=== PATIENT | female | born 1930 | race Caucasian/White ===

== ENCOUNTER 2017-09-29 08:00 | Outpatient (CLI) | payer MEDICARE | END 2017-09-29 08:01 | disposition home or self-care (01) | LOC: D.MAMMO 08:00 | DX: Z12.31 Encounter for screening mammogram for malignant neoplasm of breast (principal) ==

== ENCOUNTER 2018-10-05 08:00 | Outpatient (CLI) | payer MEDICARE | END 2018-10-05 23:59 | disposition home or self-care (01) | LOC: D.MAMMO 08:00 | PROVIDERS: ATTEND Clinical Nurse Specialist Adult Health | DX: Z12.31 Encounter for screening mammogram for malignant neoplasm of breast (principal) ==

== ENCOUNTER → 2018-11-19 10:34 | Outpatient (CLI) | payer MEDICARE ==
[~2018-11-19 10:34] MED LIST: ASCORBIC ACID500 MG PO; BACTRIM 400-801 TAB PO; BAYER CHEWABLE81 MG PO; CHRONULAC30 ML PO; CINNAMON500 MG PO; CITRACAL + D E1 EACH PO; DONEPEZIL HCL5 MG PO; FLUTICASONE PRO16 GM NASAL; GARLIC; GLUCOPHAGE1000 MG PO; GORDON'S VITE480 G1 TP; LYRICA50 MG PO; METROLOTION59 ML TOPICAL; MULTI-DAY VITAM1 TAB PO; PROBIOTIC250 MG PO; PROLIA INJ 660 MG/M1 SC; QUESTRAN LIG1 PACKET PO; REMERON15 MG PO; VITAMIN B-12250 MC3 PO; VITAMIN B-6250 MG PO
== END | disposition home or self-care (01) ==
LOC: D.MRI 10:34
PROVIDERS: ATTEND Family Medicine
DX: M48.56XA Collapsed vertebra, not elsewhere classified, lumbar region, initial encounter for fracture (principal)

== ENCOUNTER 2018-11-24 11:03 | Inpatient (IN) | payer MEDICARE, MEDICAID ==
[~2018-11-24] VITALS: Ht 167.6 cm; Wt 56.7 kg
[2018-11-24] MEDS ORDERED: CITRACAL + D E1 EACH PO (11:09)
[2018-11-24] MEDS ORDERED: BAYER CHEWABLE81 MG PO (11:09)
[2018-11-24] MEDS ORDERED: CINNAMON500 MG PO (11:10)
[2018-11-24] MEDS ORDERED: QUESTRAN LIG1 PACKET PO (11:10)
[2018-11-24] MEDS ORDERED: DONEPEZIL HCL5 MG PO (11:11)
[2018-11-24] MEDS ORDERED: GARLIC (11:12)
[2018-11-24] MEDS ORDERED: FLUTICASONE PRO16 GM NASAL (11:12)
[2018-11-24] MEDS ORDERED: LYRICA50 MG PO (11:13)
[2018-11-24] MEDS ORDERED: GLUCOPHAGE1000 MG PO (11:13)
[2018-11-24] MEDS ORDERED: METROLOTION59 ML TOPICAL (11:13)
[2018-11-24] MEDS ORDERED: MULTI-DAY VITAM1 TAB PO (11:14)
[2018-11-24] MEDS ORDERED: PROLIA INJ 660 MG/M1 SC (11:14)
[2018-11-24] MEDS ORDERED: REMERON15 MG PO (11:14)
[2018-11-24] MEDS ORDERED: VITAMIN B-6250 MG PO (11:15)
[2018-11-24] MEDS ORDERED: GORDON'S VITE480 G1 TP (11:15)
[2018-11-24] MEDS ORDERED: ASCORBIC ACID500 MG PO (11:15)
[2018-11-24] MEDS ORDERED: VITAMIN B-12250 MC3 PO (11:15)
[2018-11-24] MEDS ORDERED: PROBIOTIC250 MG PO (11:16)
[2018-11-24] MEDS ORDERED: BACTRIM 400-801 TAB PO (11:16)
[2018-11-24] MEDS ORDERED: CHRONULAC30 ML PO (11:17)
[2018-11-24 12:12] LABS: ALBUMIN 2.8 g/dL (3.4-5.0); ALKALINE PHOSPHATASE 104 U/L (46-116); ALT (SGPT) 22 U/L (10-68); AMYLASE - SERUM 97 U/L (25-115); BILIRUBIN - TOTAL 0.45 mg/dL (0.2-1.3); CALC OSMOLALITY 282 mosm/kg (275-300); CALCIUM 10.6 mg/dL (8.5-10.1); CARBON DIOXIDE 27.4 mmol/L (21.0-32.0); CHLORIDE - SERUM 90 mmol/L (98-107); CREATININE - SERUM 1.7 mg/dL (0.6-1.3); GLUCOSE 288 mg/dL (74-106); PROTEIN - SERUM 6.8 g/dL (6.4-8.2); SODIUM 124 mmol/L (136-145); TROPONIN-I < 0.017 ng/mL (0.000-0.060); UREA NITROGEN 73 mg/dL (7-18); eGFR NON AFRICAN AMERICAN 30 mL/min (90-120)
[2018-11-24 12:15] LABS: APPEARANCE HAZY (CLEAR); BILIRUBIN NEGATIVE (NEGATIVE); COLOR YELLOW (YELLOW); GLUCOSE 50 mg/dL (NEGATIVE); KETONE NEGATIVE (NEGATIVE); NITRITE NEGATIVE (NEGATIVE); PROTEIN 1+ mg/dL (NEGATIVE); SPECIFIC GRAVITY 1.025 (1.005-1.020); UROBILINOGEN NORMAL (NORMAL); WHITE CELLS - URINE NSEEN /hpf (0-5)
[2018-11-24 12:16] LABS: LIPASE 41 U/L (73-393)
[2018-11-24 12:16] LABS: BACTERIA FEW /hpf (NONE SEEN); EPITHELIAL CELLS 0-5 /hpf (0-5); MUCUS <1+ /lpf (NONE SEEN); RED CELLS - URINE RARE /hpf (0-5)
[2018-11-24 12:18] LABS: POTASSIUM - SERUM 6.1 mmol/L (3.5-5.1)
[2018-11-24 12:19] LABS: BASOPHILS 0.1 % (0-2); EOSINOPHILS 0 % (0-7); HEMATOCRIT 35.7 % (36.0-48.0); HEMOGLOBIN 11.8 g/dL (12-16); IMMATURE GRANULOCYTES 0.4 % (0-5); LYMPHOCYTES 4.8 % (15-50); MCH 28.7 pg (26.0-34.0); MCHC 33.1 g/dL (31.0-37.0); MCV 86.9 fL (80.0-100.0); MONOCYTES 13.9 % (2-11); NEUTROPHILS 80.8 % (40-80); PLATELET COUNT 392 10x3/uL (130-400); RBC 4.11 10x6/uL (4.00-5.40); WBC 17.4 10x3/uL (4.8-10.8)
[2018-11-24 13:47] VITALS: BP 147/61
--- NOTE | 2018-11-24 14:36 | NUR ---
PT HEART RATE NOTED TO BE ELEVATED, CLIFTON WOODY APN, IN ED, NOTIFIED OF PT HEART RATE, NURSE ASKED HER IF SHE WANTED ANOTHER EKG DONE. JENNIFER STATES YES, FOR ANOTHER EKG. EKG REPORTS AFIB WITH RVR. NURSE CALLED DR. FULLER TO NOTIFY HER OF EKG RESULTS. STATES CARDIOLOGY CONSULT. NO OTHERS ORDERS GIVEN.
--- NOTE | 2018-11-24 14:50 | NUR ---
PATIENT ARRIVED TO UNIT VIA GERNEY. PATIENT ALERT/ORIENTED. PATIENT REQUIRES MAX ASSIST TO GET FROM GERNEY TO BED. IV TO RIGHT FOREARM PATENT. RESP EVEN AND UNLABORED. WHILE ASSISTING PATIENT TO BED, SKIN INSPECTED AND LARGE BASEBALL SHAPE RED AREA APPROX 5X5 NOTED OVER SACRUM/COCCYYX/GLUTEAL CLEFT AREA. ALSO SOME FADING BRUISES TO SACRAL AREA. PATIENT DENIES NAY FALLS OVER THE LAST FEW WEEKS. PATIENT HAS UPPER AND LOWER DENTURES AND GLASSES. [place]. NO ASSISTIVE DEVICES. PATIENT AT BEDSIDE. NO DISTRESS. CALL LIGHT PLACED WITH IN REACH.
[2018-11-24 15:26] VITALS: BP 171/67
--- NOTE | 2018-11-24 16:51 | NUR ---
FSBS 281. 6 UNITS INSULIN ADMINISTERED PER SLIDING SCALE.
--- NOTE | 2018-11-24 17:06 | NUR ---
SHIRIN PARRISH REPORTS TO NURSE THAT PATIENTS SPOUSE WAS VERY RUDE TO HER. PATIENT SPOUSE STATED THAT THE LIGHT HAD BEEN ON FOR 30 MINUTES AND THAT SHE HAS TO GO TO THE BATHROOM AND NOW THE BED IS SOILED. APOLOGIZED TO THE ANIMAL DAYCARE PROVIDER THIS STROKE PROGRAM COORDINATOR WAS JUST IN THE ROOM AT 1649 TO GIVE INSULIN AND THEN TOOK FRESH ICE WATER BACK TO THE ROOM, THE CALL LIGHT HAS NOT BEEN ON FOR 30 MINUTES. APOLOGIZED AGAIN TO ANIMAL DAYCARE PROVIDER FOR PATIENTS SPOUSE BEING RUDE TO HER.
--- NOTE | 2018-11-24 17:15 | NUR ---
INCONTINENT CARE AND COMPLETE LINEN CHANGE PROVIDED AT THIS TIME. NO DISTRESS.
[2018-11-24 17:40] VITALS: BP 171/67; BMI 20.2
[2018-11-24 17:56] LABS: BASOPHILS 0.1 % (0-2); EOSINOPHILS 0 % (0-7); HEMATOCRIT 30.8 % (36.0-48.0); HEMOGLOBIN 10.4 g/dL (12-16); IMMATURE GRANULOCYTES 0.3 % (0-5); LYMPHOCYTES 4.4 % (15-50); MCH 28.9 pg (26.0-34.0); MCHC 33.8 g/dL (31.0-37.0); MCV 85.6 fL (80.0-100.0); MEAN PLATELET VOLUME 8.7 fL (7.4-10.4); MONOCYTES 11.4 % (2-11); NEUTROPHILS 83.8 % (40-80); RDW 13.7 % (11.5-14.5); WBC 14.6 10x3/uL (4.8-10.8)
[2018-11-24 18:00] LABS: PLATELET COUNT 313 10x3/uL (130-400)
[2018-11-24 18:12] LABS: ANION GAP 13.6 mmol/L (8-16); CARBON DIOXIDE 24.8 mmol/L (21.0-32.0); CREATININE - SERUM 1.4 mg/dL (0.6-1.3); MAGNESIUM - SERUM 2.8 mg/dL (1.8-2.4); PHOSPHOROUS 2.5 mg/dL (2.5-4.9); POTASSIUM - SERUM 5.4 mmol/L (3.5-5.1)
--- NOTE | 2018-11-24 18:40 | NUR ---
PHONE NUMBER IS [phone]. THAT IS THE LANDLINE NUMBER. HE DOES HAVE A CELL PHONE BUT CAN NOT REMEMBER HIS CELL PHONE NUMBER. 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
--- NOTE | 2018-11-24 19:40 | NUR ---
ASSESSMENT COMPLETE, PT IN BED RESTING WITH EYES CLOSED, AROUSES TO VERBAL STIMULI. RESPERATIONS EVEN ON RA. IV TO RIGHT ARM WITH NS INFUSING AT 125 CC/HR. PTS AT BED SIDE, BED LOW, CL IN REACH.
[2018-11-24 20:00] VITALS: BP 159/60
[2018-11-25] VITALS: BP 160/62
[2018-11-25 06:34] LABS: BASOPHILS 0.2 % (0-2); EOSINOPHILS 0 % (0-7); IMMATURE GRANULOCYTES 1.1 % (0-5); LYMPHOCYTES 8.5 % (15-50); MCH 28.4 pg (26.0-34.0); MCHC 33.3 g/dL (31.0-37.0); MCV 85.2 fL (80.0-100.0); MEAN PLATELET VOLUME 8.9 fL (7.4-10.4); MONOCYTES 12.5 % (2-11); NEUTROPHILS 77.7 % (40-80); PLATELET COUNT 339 10x3/uL (130-400); RBC 3.17 10x6/uL (4.00-5.40); RDW 13.9 % (11.5-14.5); WBC 12.8 10x3/uL (4.8-10.8)
[2018-11-25 06:49] VITALS: BP 159/65
[2018-11-25 07:11] LABS: ANION GAP 11.6 mmol/L (8-16); CALCIUM 7.9 mg/dL (8.5-10.1); CREATININE - SERUM 1.1 mg/dL (0.6-1.3); MAGNESIUM - SERUM 2.4 mg/dL (1.8-2.4); POTASSIUM - SERUM 4.6 mmol/L (3.5-5.1)
[2018-11-25 07:13] LABS: PHOSPHOROUS 1.7 mg/dL (2.5-4.9)
--- NOTE | 2018-11-25 07:52 | NUR ---
RECIEVED REPORT. PATIENT IS RESTING QUIETLY WITH EYES CLOSED AT THIS TIME. DENIES ANY NEEDS AT THIS TIME.
[2018-11-25 08:32] VITALS: BP 166/65
--- NOTE | 2018-11-25 10:33 | NUR ---
PATIENT REPORTS AND FAMILY THAT SHE IS NO LONGER TAKING LYRICA BECAUSE HER EYE DR TOLD HER IF SHE CAN STAND TO NOT TAKE IT, AND DOES NOT HAVE TOO MUCH PAIN IN HER FEET, NOT TO TAKE IT. SHE AND HER FAMILY MEMBER TOLD ME SHE HAS NOT TAKEN IT FOR 4 MONTHS. WILL CALL AND REPORT TO CLIFTON.
[2018-11-25 12:43] VITALS: BP 137/62
[2018-11-25 13:18] VITALS: BMI 20.1
--- NOTE | 2018-11-25 18:32 | NUR ---
LAURA CATHETER PLACED. 16 ALBANIAN, AND THE BALLOON FILLED WITH 10CC STERILE WATER. PATIENT TOLERATED WELL. 200 ML CLEAR YELLOW URINE FLOWED INTO BAG AFTER INSERTION. LAURA CATHETER ORDERED BY DR BOLES TO MONITOR FLUIDS ON THIS PATIENT, SHE CAME IN FOR DEHYDRATION, AND IS INCONTINENT. PATIENT TOLERATED PROCEDURE WELL.
--- NOTE | 2018-11-25 19:00 | NUR ---
PATIENT LAYING IN BED, EYES CLOSED, CHEST RISING AND FALLING. NO DISTRESS NOTED. LAURA EMPTIED AND RECIEVED 400ML OF JACKELIN URINE.
--- NOTE | 2018-11-26 01:30 | NUR ---
PATIENT LAYING IN BED, EYES CLOSED, CHEST RISING AND FALLING. NO DISTRESS NOTED.
[2018-11-26 05:30] LABS: HEMATOCRIT 24.8 % (36.0-48.0); HEMOGLOBIN 8.1 g/dL (12-16); MCH 28.4 pg (26.0-34.0); MCHC 32.7 g/dL (31.0-37.0); MEAN PLATELET VOLUME 8.7 fL (7.4-10.4); PLATELET COUNT 327 10x3/uL (130-400); RBC 2.85 10x6/uL (4.00-5.40); RDW 14.1 % (11.5-14.5); WBC 10.8 10x3/uL (4.8-10.8)
[2018-11-26 05:52] LABS: ANION GAP 11.4 mmol/L (8-16); CALCIUM 7.4 mg/dL (8.5-10.1); CARBON DIOXIDE 22.9 mmol/L (21.0-32.0); CREATININE - SERUM 0.9 mg/dL (0.6-1.3); MAGNESIUM - SERUM 1.9 mg/dL (1.8-2.4); POTASSIUM - SERUM 4.3 mmol/L (3.5-5.1)
[2018-11-26 05:56] LABS: LYMPHOCYTES 16 % (15-50); MONOCYTES 13 % (2-11); NEUTROPHILS 71 % (40-80); PLATELET ESTIMATE NORMAL
[2018-11-26 06:39] LABS: PHOSPHOROUS 1.4 mg/dL (2.5-4.9)
--- NOTE | 2018-11-26 06:46 | NUR ---
RECIEVED CALL FROM LAB FOR CRITICAL PHOS. PATIENT GIVEN 2 PKS OF PHOS-NAK PER ELECTROLYTE PROTOCOL. WILL PASS ON TO DAY SHIFT NURSE TO CONTINUE ELECTROLYTE PROTOCOL.
[2018-11-26 08:00] VITALS: BP 162/65
[2018-11-26 12:00] VITALS: BP 141/68
--- NOTE | 2018-11-26 12:58 | NUR ---
I have reviewed this patient and I concur with the Shift Assessment completed by the Licensed Practical Nurse today this shift.
--- NOTE | 2018-11-26 13:11 | EC ---
PATIENT:JAYCE JIM DATE OF SERVICE: 11/24/18 SEX: F MEDICAL RECORD: [id number] DATE OF : 32 LOCATION:D.M2 D.212 AGE OF PATIENT: 88 ADMISSION DATE: 11/24/18 REFERRING PHYSICIAN: INTERPRETING PHYSICIAN: CHRIS CHENG MD ECHOCARDIOGRAM REPORT ECHO CHARGES 4 ECHO COMPLETE Date: 11/25/18 CLINICAL DIAGNOSIS: ECHOCARDIOGRAPHIC MEASUREMENTS (adult normal given) AC root (d.<3.7cm) 2.6 cm LV Septum d (<1.2 cm> 1.0 cm Valve Excursion 1.8 cm LV Septum (systole) 1.2 cm Left Atria (s.<4.0cm> 2.0 cm LVPW d(<1.2cm) 1.3 cm RV (d.<2.3cm) 2.4 cm LVPW (sytole) 1.4 cm LV diastole(<5.6CM) 3.4 cm MV E-F(>70mm/sec) cm LV systole 2.0 cm LVOT Diameter 1.7 cm MV exc.(>10mm) cm Est.ejection fraction (50-75%) % DOPPLER: LVIT cm/sec A 41 cm/sec E 106 cm/sec LA cm/sec RVSP 35.9 mmHg LVOT 150 cm/sec AOP1/2T m/s Asc. Ao 169 cm/sec RVOT 75 cm/sec RA cm/sec PA 95 cm/sec AV Gradient Peak 11.4 mmHg AV Mean 6.9 mmHg AV Area 2.5 cm MV Gradient Peak 5.5 mmHg MV Mean 2.0 mmHg MV Area cm COMMENTS: Blacksmith Helper: [facility] Ad Trafficker: 3 Dr. Shah TAPE# PACS Pericardial Effusion N DATE OF SERVICE: 11/25/2018 Adequate 2D, color flow imaging, spectral Doppler, and M-Mode Borderline LVH. LV internal dimensions are normal. Wall motion is normal. EF is greater than or equal to 55%. 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 Left atrium is normal at 3.8 cm. Mitral valve shows no prolapse. Trace MR. Right-sided chambers are grossly normal. Trace TR. 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 TRANSINT:[id number] Voice Confirmation ID: [id number] DOCUMENT ID: [id number] CHRIS CHENG MD at 1311 CC: [id number] DICTATION DATE: 11/25/18 1434 MOTOR COACH TOUR OPERATOR: 11/25/18 1541 ADM IN [place] [id number] [place] [address]
[2018-11-26 13:48] LABS: % SATURATION 19 % (15-55); IRON 30 ug/dl (35-150); TOTAL IRON BIND CAPACITY 153 ug/dl (260-445); UNSAT IRON BIND CAPACITY 123 ug/dl (150-375)
[2018-11-26 14:00] LABS: FERRITIN 262 ng/mL (3-244)
--- NOTE | 2018-11-26 16:34 | MORECARE ---
CASE MANAGEMENT DISCHARGE SUMMARY PATIENT: JAYCE JIM UNIT: [id number] ADM DATE: 11/24/18 AGE: 88 : 31 SEX: F ROOM/BED: D.2129 AUTHOR: KATIE MARTIN PHYSICIAN: REFERRING PHYSICIAN: WAYLON FULLER MD DATE OF SERVICE: 11/26/18 Discharge Plan Patient Name: JAYCE JIM Facility: [facility]:[place] : 1930 Planned Disposition: Home Anticipated Discharge Date: Discharge Date: Expected LOS: Initial Reviewer: [email or web address] Initial Review Date: 11/24/2018 Generated: 11/26/18 5:34 pm Patient Name: AJYCE JIM Page 49029 at 1634 All edits/amendments must be made on the electronic document DICTATION DATE: 11/26/18 1634 SILVERING DEPARTMENT SUPERVISOR: ADONIS 11/26/18 1634 RPT#: [id number] DC DATE: STATUS: ADM IN [facility] [address] [place] [address] END OF REPORT
--- NOTE | 2018-11-26 16:41 | MORECARE ---
CASE MANAGEMENT DISCHARGE SUMMARY PATIENT: JAYCE JIM UNIT: [id number] ADM DATE: 11/24/18 AGE: 88 : 31 SEX: F ROOM/BED: D.2129 AUTHOR: KATIE MARTIN PHYSICIAN: REFERRING PHYSICIAN: WAYLON FULLER MD DATE OF SERVICE: 11/26/18 Discharge Plan Patient Name: JAYCE JIM Facility: [facility]:[place] : 1930 Planned Disposition: Home Anticipated Discharge Date: Discharge Date: Expected LOS: Initial Reviewer: [email or web address] Initial Review Date: 11/24/2018 Generated: 11/26/18 5:41 pm DCPIA - Discharge Planning Initial Assessment Updated by [email or web address]: Aniceto Zuleta on 11/26/18 4:36 pm * Is the patient Alert and Oriented? Yes * How many steps to enter\exit or inside your home? NONE * PCP DR. ACEVEDO * Pharmacy [facility] * Preadmission Environment Home with Family * ADLs Independent * Equipment Rolling Walker Walker Wheelchair * Other Equipment ROLLATOR WALKER NO MEDICAL EQUIPMENT PROVIDER PREFERENCE * List name and contact numbers for known caregivers / representatives who currently or will assist patient after discharge: ALFRED DIANDRA, SPOUSE, OR [facility]- [phone] DANTE SOTELO, DTR, * Verbal permission to speak to the caregivers and representatives has been obtained from the patient. N/A * Community resources currently utilized Other * Please name any agencies selected above. OUTPATIENT PHYSICAL THERAPY, FRIDAY/FRIDAY, [facility] * Additional services required to return to the preadmission environment? No * Can the patient safely return to the preadmission environment? Yes * Has this patient been hospitalized within the prior 30 days at any hospital? No Last DP export: 11/26/18 3:34 pm Patient Name: JAYCE JIM Page 00415 at 1641 All edits/amendments must be made on the electronic document DICTATION DATE: 11/26/18 1640 POWER MARKETER: ADONIS 11/26/18 1640 RPT#: [id number] DC DATE: STATUS: ADM IN [facility] [address] [facility] [place] [address] END OF REPORT
--- NOTE | 2018-11-26 16:49 | MORECARE ---
CASE MANAGEMENT DISCHARGE SUMMARY PATIENT: JAYCE JIM UNIT: [id number] ADM DATE: 11/24/18 AGE: 88 : 31 SEX: F ROOM/BED: D.2803 AUTHOR: KATIE MARTIN PHYSICIAN: REFERRING PHYSICIAN: WAYLON FULLER MD DATE OF SERVICE: 11/26/18 Discharge Plan Patient Name: JAYCE JIM Facility: [facility]:[place] : 1930 Planned Disposition: Home Anticipated Discharge Date: Discharge Date: Expected LOS: Initial Reviewer: [email or web address] Initial Review Date: 11/24/2018 Generated: 11/26/18 5:49 pm Comments DCP- Discharge Planning Updated by [id number]: Aniceto Zuleta on 11/26/18 3:[address] Patient Name: JAYCE JIM Admission Status: ER Accout number: [id number] Admission Date: 11-24-2018 : 1930 Admission Diagnosis: Attending: WAYLON FULLER Current LOS: 2 Anticipated DC Date: Planned Disposition: Home Primary Insurance: [employer] MEDICARE ADV Discharge Planning Comments: CM MET WITH PT AND SPOUSE IN ROOM TO DISCUSS DISCHARGE PLANNING AND NEEDS. JAYCE JIM provided verbal consent to discuss current and ongoing needs with/in the presence of: SPOUSE, ALFRED. PT REPORTS LIVING AT HOME DEPENDENTLY WITH HER SPOUSE WHO ASSIST WITH MEDICATION MANAGEMENT. PT HAS ROLLATOR WALKER, WALKER AND WHEELCHAIR AT HOME WITH NO MEDICAL EQUIPMENT PROVIDER PREFERENCE. PT HAS NO OUTSIDE SERVICES ASSISTING IN THE HOME. PT HAS BEEN GOING TO [facility] ON TUESDAYS AND THURSDAYS FOR THERAPY. CM DISCUSSED AVAILABILITY OF HOME HEALTH, REHAB SERVICES AND MEDICAL EQUIPMENT. PT DENIES DISCHARGE NEEDS REPORTS PLAN TO GO HOME. PT'S SPOUSE REPORTS PT'S LEGS ARE WEAK AND PT MAY REQUIRE REHAB OR THERAPY SERVICES. THEY WILL LET CM KNOW IF THEY FEEL REHAB IS NEEDED PRIOR TO DISCHARGE. PT'S SPOUSE TO TRANSPORT HOME AT DISCHARGE. PT PLANS TO DISCHARGE HOME WITH SPOUSE. PT HAS UNKNOWN DISCHARGE NEEDS AT THIS TIME, SPOUSE THINKS PT MAY REQUIRE REHAB OF SOME TYPE EITHER BEFORE GOING HOME OR AT HOME WITH HOME HEALTH. CM TO FOLLOW AND ASSIST NEEDED. Tool Coordinator: Aniceto Zuleta DCPIA - Discharge Planning Initial Assessment Updated by [id number]: Aniceto Zuleta on 11/26/18 4:36 pm * Is the patient Alert and Oriented? Yes * How many steps to enter\exit or inside your home? NONE * PCP DR. ACEVEDO * Pharmacy [facility] * Preadmission Environment Home with Family * ADLs Independent * Equipment Rolling Walker Walker Wheelchair * Other Equipment ROLLATOR WALKER NO MEDICAL EQUIPMENT PROVIDER PREFERENCE * List name and contact numbers for known caregivers / representatives who currently or will assist patient after discharge: ALFRED DIANDRA, SPOUSE, OR [facility]- [phone] DANTE SOTELO, DTR, * Verbal permission to speak to the caregivers and representatives has been obtained from the patient. N/A * Community resources currently utilized Other * Please name any agencies selected above. OUTPATIENT PHYSICAL THERAPY, FRIDAY/FRIDAY, [facility] * Additional services required to return to the preadmission environment? No * Can the patient safely return to the preadmission environment? Yes * Has this patient been hospitalized within the prior 30 days at any hospital? No Last DP export: 11/26/18 3:41 pm Patient Name: JAYCE JIM Page 76642 at 1649 All edits/amendments must be made on the electronic document DICTATION DATE: 11/26/181648 CAP JEWEL PLATE ASSEMBLER: ADONIS 11/26/181648 RPT#: [id number] DC DATE: STATUS: ADM IN [facility] [address] [place] [address] END OF REPORT
[2018-11-26 20:00] VITALS: BP 128/48
[2018-11-27] VITALS: BP 148/69
[2018-11-27 04:30] VITALS: BP 137/59
[2018-11-27 06:31] LABS: CALC OSMOLALITY 275 mosm/kg (275-300); CALCIUM 7.1 mg/dL (8.5-10.1); CARBON DIOXIDE 21.5 mmol/L (21.0-32.0); CHLORIDE - SERUM 106 mmol/L (98-107); CREATININE - SERUM 0.6 mg/dL (0.6-1.3); GLUCOSE 191 mg/dL (74-106); MAGNESIUM - SERUM 1.7 mg/dL (1.8-2.4); PHOSPHOROUS 1.6 mg/dL (2.5-4.9); POTASSIUM - SERUM 4.3 mmol/L (3.5-5.1); SODIUM 135 mmol/L (136-145); UREA NITROGEN 14 mg/dL (7-18); eGFR NON AFRICAN AMERICAN > 90 mL/min (90-120)
[2018-11-27 06:35] LABS: BASOPHILS 0.4 % (0-2); EOSINOPHILS 0.5 % (0-7); HEMOGLOBIN 8.1 g/dL (12-16); IMMATURE GRANULOCYTES 10.4 % (0-5); LYMPHOCYTES 16.6 % (15-50); MCH 28.5 pg (26.0-34.0); MCHC 32.4 g/dL (31.0-37.0); MEAN PLATELET VOLUME 8.6 fL (7.4-10.4); NEUTROPHILS 60.1 % (40-80); PLATELET COUNT 296 10x3/uL (130-400); RBC 2.84 10x6/uL (4.00-5.40); WBC 9.2 10x3/uL (4.8-10.8)
--- NOTE | 2018-11-27 07:30 | NUR ---
A/A/OX4. STATES SHE FEELS A LITTLE BETTER TODAY THAN YESTERDAY, DENIES ANY PAIN, DISCOMFORT OR NAUSEA. NO REQUESTS VOICED. ASSESSMENT COMPLETED AND WILL CONTINUE POC. IV PATENT TO RIGHT FOREARM AND IVF INFUSING WELL. BED IN LOWEST LOCKED POSITION, SIDE RAILS UP X 2 AND CALL LIGHT IN REACH. AT BEDSIDE.
[2018-11-27 08:59] VITALS: BP 166/62
--- NOTE | 2018-11-27 12:02 | MORECARE ---
CASE MANAGEMENT DISCHARGE SUMMARY PATIENT: JAYCE JIM UNIT: [id number] ADM DATE: 11/24/18 AGE: 88 : 31 SEX: F ROOM/BED: D.5213 AUTHOR: KATIE MARTIN PHYSICIAN: REFERRING PHYSICIAN: WAYLON FULLER MD DATE OF SERVICE: 11/27/18 Discharge Plan Patient Name: JAYCE JIM Facility: [facility]:[place] : 1930 Planned Disposition: Inpatient Rehab Anticipated Discharge Date: Discharge Date: Expected LOS: Initial Reviewer: [email or web address] Initial Review Date: 11/24/2018 Generated: 11/27/18 1:02 pm Comments DCP- Discharge Planning Updated by [email or web address]: Aniceto Zuleta on 11/26/18 3:[address] Patient Name: JAYCE JIM Admission Status: ER Accout number: [id number] Admission Date: 11-24-2018 : 1930 Admission Diagnosis: Attending: WAYLON FULLER Current LOS: 2 Anticipated DC Date: Planned Disposition: Home Primary Insurance: WE[employer] MEDICARE ADV Discharge Planning Comments: CM MET WITH PT AND SPOUSE IN ROOM TO DISCUSS DISCHARGE PLANNING AND NEEDS. JAYCE JIM provided verbal consent to discuss current and ongoing needs with/in the presence of: SPOUSE, ALFRED. PT REPORTS LIVING AT HOME DEPENDENTLY WITH HER SPOUSE WHO ASSIST WITH MEDICATION MANAGEMENT. PT HAS ROLLATOR WALKER, WALKER AND WHEELCHAIR AT HOME WITH NO MEDICAL EQUIPMENT PROVIDER PREFERENCE. PT HAS NO OUTSIDE SERVICES ASSISTING IN THE HOME. PT HAS BEEN GOING TO [facility] ON TUESDAYS AND THURSDAYS FOR THERAPY. CM DISCUSSED AVAILABILITY OF HOME HEALTH, REHAB SERVICES AND MEDICAL EQUIPMENT. PT DENIES DISCHARGE NEEDS REPORTS PLAN TO GO HOME. PT'S SPOUSE REPORTS PT'S LEGS ARE WEAK AND PT MAY REQUIRE REHAB OR THERAPY SERVICES. THEY WILL LET CM KNOW IF THEY FEEL REHAB IS NEEDED PRIOR TO DISCHARGE. PT'S SPOUSE TO TRANSPORT HOME AT DISCHARGE. PT PLANS TO DISCHARGE HOME WITH SPOUSE. PT HAS UNKNOWN DISCHARGE NEEDS AT THIS TIME, SPOUSE THINKS PT MAY REQUIRE REHAB OF SOME TYPE EITHER BEFORE GOING HOME OR AT HOME WITH HOME HEALTH. CM TO FOLLOW AND ASSIST NEEDED. Fish Processing Supervisor: Aniceto Zuleta DCPIA - Discharge Planning Initial Assessment Updated by [id number]: Aniceto Zuleta on 11/26/18 4:36 pm * Is the patient Alert and Oriented? Yes * How many steps to enter\exit or inside your home? NONE * PCP DR. ACEVEDO * Pharmacy [facility] * Preadmission Environment Home with Family * ADLs Independent * Equipment Rolling Walker Walker Wheelchair * Other Equipment ROLLATOR WALKER NO MEDICAL EQUIPMENT PROVIDER PREFERENCE * List name and contact numbers for known caregivers / representatives who currently or will assist patient after discharge: ALFRED JIM, SPOUSE, OR [facility]- [phone] DANTE SOTELO, DTR, * Verbal permission to speak to the caregivers and representatives has been obtained from the patient. N/A * Community resources currently utilized Other * Please name any agencies selected above. OUTPATIENT PHYSICAL THERAPY, FRIDAY/FRIDAY, [facility] * Additional services required to return to the preadmission environment? No * Can the patient safely return to the preadmission environment? Yes * Has this patient been hospitalized within the prior 30 days at any hospital? No Coverage Notice Reviewer: [id number] - Aniceto Zuleta Notice Issued Date-Time: 11/27/2018 11:50 Notice Type: IM Discharge Notice Notice Delivered To: Family Member Relationship to Patient: Spouse Database Report Writer Name: SAMAN JIM Delivery Method: HAND - Hand Delivered Adrienne Days: Prior Verbal Notification: Recipient Understood Notice: Yes Recipient Signature: Yes Med Rec Note Co-signed by Attending: Coverage Notice Comment: Last DP export: 11/26/18 3:49 pm Patient Name: JAYCE JIM Page [phone] at 1202 All edits/amendments must be made on the electronic document DICTATION DATE: 11/27/18 1202 DIRECTOR GLOBAL INTELLIGENCE: ADONIS 11/27/18 1202 RPT#: [id number] DC DATE: STATUS: ADM IN [facility] [address] [place] [address] END OF REPORT
--- NOTE | 2018-11-27 12:11 | MORECARE ---
CASE MANAGEMENT DISCHARGE SUMMARY PATIENT: JAYCE JIM UNIT: [id number] ADM DATE: 11/24/18 AGE: 88 : 31 SEX: F ROOM/BED: D.2129 AUTHOR: KATIE MARTIN PHYSICIAN: REFERRING PHYSICIAN: WAYLON FULLER MD DATE OF SERVICE: 11/27/18 Discharge Plan Patient Name: JAYCE JIM [facility] [facility] 1930 Planned Disposition: Inpatient Rehab Anticipated Discharge Date: Discharge Date: Expected LOS: Initial Reviewer: [email or web address] Initial Review Date: 11/24/2018 Generated: 11/27/18 1:11 pm Comments DCP- Discharge Planning Updated by [id number]: Aniceto Zuleta on 11/27/18 11:[address] Patient Name: JAYCE JIM Encounter No: [id number] : 1930 Primary Insurance: WELL[employer] MEDICARE ADV Anticipated DC Date: Planned Disposition: Inpatient Rehab External Planned Provider: [facility] INPATIENT REHAB DCP follow-up note: CM RECEIVED INPATIENT REHAB PRESCREENING ORDER, MET WITH PT AND SPOUSE IN ROOM TO DISCUSS DISCHARGE PLANNING AND NEEDS. CM DISCUSSED AVAILABILTY OF REHAB SERVICES, PROVIDERS, LOCATIONS AND INSURANCE REQUIRING PRIOR AUTHORIZATION FOR SERVICES. PT'S SPOUSE REPORTS PT HAS BEEN TO [facility] IN THE PAST AND THEY WOULD LIKE TO TRY REHAB AT [place]. PT IN AGREEMENT. IMPORTANT MESSAGE FROM MEDICARE PROVIDED AND EXPLAINED. CM WAITING INPATIENT REHAB PRESCREENING, ADMISSION DETERMINATION FROM [facility] INPATIENT REHAB WELL INSURANCE AUTHORIZATION FOR REHAB SERVICES. FLORENTINO Pierre DCP- Discharge Planning Updated by [email or web address]: Aniceto Zuleta on 11/26/18 3:[address] Patient Name: JAYCE JIM Admission Status: ER Accout number: [id number] Admission Date: 11-24-2018 : 1930 Admission Diagnosis: Attending: WAYLON FULLER Current LOS: 2 Anticipated DC Date: Planned Disposition: Home Primary Insurance: WE[employer] MEDICARE ADV Discharge Planning Comments: CM MET WITH PT AND SPOUSE IN ROOM TO DISCUSS DISCHARGE PLANNING AND NEEDS. JAYCE JIM provided verbal consent to discuss current and ongoing needs with/in the presence of: SPOUSE, ALFRED. PT REPORTS LIVING AT HOME DEPENDENTLY WITH HER SPOUSE WHO ASSIST WITH MEDICATION MANAGEMENT. PT HAS ROLLATOR WALKER, WALKER AND WHEELCHAIR AT HOME WITH NO MEDICAL EQUIPMENT PROVIDER PREFERENCE. PT HAS NO OUTSIDE SERVICES ASSISTING IN THE HOME. PT HAS BEEN GOING TO [facility] ON TUESDAYS AND THURSDAYS FOR THERAPY. CM DISCUSSED AVAILABILITY OF HOME HEALTH, REHAB SERVICES AND MEDICAL EQUIPMENT. PT DENIES DISCHARGE NEEDS REPORTS PLAN TO GO HOME. PT'S SPOUSE REPORTS PT'S LEGS ARE WEAK AND PT MAY REQUIRE REHAB OR THERAPY SERVICES. THEY WILL LET CM KNOW IF THEY FEEL REHAB IS NEEDED PRIOR TO DISCHARGE. PT'S SPOUSE TO TRANSPORT HOME AT DISCHARGE. PT PLANS TO DISCHARGE HOME WITH SPOUSE. PT HAS UNKNOWN DISCHARGE NEEDS AT THIS TIME, SPOUSE THINKS PT MAY REQUIRE REHAB OF SOME TYPE EITHER BEFORE GOING HOME OR AT HOME WITH HOME HEALTH. CM TO FOLLOW AND ASSIST NEEDED. Cement Fittings Maker: Aniceto Zuleta DCPIA - Discharge Planning Initial Assessment Updated by [email or web address]: Aniceto Zuleta on 11/26/18 4:36 pm * Is the patient Alert and Oriented? Yes * How many steps to enter\exit or inside your home? NONE * PCP DR. ACEVEDO * Pharmacy [facility] * Preadmission Environment Home with Family * ADLs Independent * Equipment Rolling Walker Walker Wheelchair * Other Equipment ROLLATOR WALKER NO MEDICAL EQUIPMENT PROVIDER PREFERENCE * List name and contact numbers for known caregivers / representatives who currently or will assist patient after discharge: ALFRED JIM, SPOUSE, OR [facility]- [phone] DANTE SOTELO DTR, * Verbal permission to speak to the caregivers and representatives has been obtained from the patient. N/A * Community resources currently utilized Other * Please name any agencies selected above. OUTPATIENT PHYSICAL THERAPY, FRIDAY/FRIDAY, [facility] * Additional services required to return to the preadmission environment? No * Can the patient safely return to the preadmission environment? Yes * Has this patient been hospitalized within the prior 30 days at any hospital? No Coverage Notice Reviewer: [email or web address] - Aniceto Zuleta Notice Issued Date-Time: 11/27/2018 11:50 Notice Type: IM Discharge Notice Notice Delivered To: Family Member Relationship to Patient: Spouse [employer] Secretary Name: SAMAN JIM Delivery Method: HAND - Hand Delivered Adrienne Days: Prior Verbal Notification: Recipient Understood Notice: Yes Recipient Signature: Yes Med Rec Note Co-signed by Attending: Coverage Notice Comment: Last DP export: 11/27/18 11:02 am Patient Name: JAYCE JIM Page [phone] at 1211 All edits/amendments must be made on the electronic document DICTATION DATE: 11/27/18 1210 SURFACE MOUNT TECHNOLOGY OPERATOR: ADONIS 11/27/18 1210 RPT#: [id number] DC DATE: STATUS: ADM IN [facility] [address] [place] [address] END OF REPORT
--- NOTE | 2018-11-27 14:24 | NUR ---
Nutrition Follow-up: Diet advanced to Diabetic. Eating lunch at time of visit. Reports tolerating PO intake. Per chart, c/o dysphagia; noted ST consult. Last BM: 11/24 (per ); 11/27 per chart Wt: 125# Labs reviewed Meds reviewed Rec adjust diet per ST recs. [place] food preferences within diet restrictions. RD following.
[2018-11-27 16:17] VITALS: BP 149/60
--- NOTE | 2018-11-27 16:53 | NUR ---
I have reviewed this patient and I concur with the Shift Assessment completed by the Licensed Practical Nurse today this shift.
--- NOTE | 2018-11-27 17:23 | NUR ---
OT NOTE: PT COOPERATIVE . PT COMPLETED BED MOB TASKS WITH MIN A. PT COMPLETED EOB SITTING WITH SBA. PT COMPLETED FACE WASHING AND HAIR GROOMING WITH SET UP. THANK YOU, ANGELO BRADFORD
--- NOTE | 2018-11-27 17:36 | NUR ---
Rehab Note- Acute Inpatient Rehab prescreen order received. The patient has [employer] Insurance & will require a PreAuth prior to an inpatient acute rehab stay. PreAuth has been initiated & clinicals have been faxed. Awaiting determination from insurance. Will follow at this time. Thank you for this referral! Arabella Diego RN Clinical Liaison, [facility] Rehab
[2018-11-27 20:00] VITALS: BP 151/62
--- NOTE | 2018-11-27 20:33 | NUR ---
INITIAL ROUNDS COMPLETED AT 1910 HRS. PT DENIED ANY DISCOMFORT. SPOUSE AT BEDSIDE. ASSESSMENT COMPLETED AT 2000 HRS. SR PER CM HR 79. ALERT AND ORIENTED TO PERSON,PLACE AND TIME. PALUMBO. PALPABLE PREIPHERAL PULSES. IV TO R WRIST WITH NS AT 100CC/HR. IV PATENT. LAURA DRAINING YELLOW URINE. SR UP X2, CALL LIGHT WITHIN REACH.
--- NOTE | 2018-11-27 22:41 | NUR ---
PT RESTING WITH EYES CLOSED. RESP EVEN AND REGULAR. SR UP X2, CALL LIGHT WITHIN REACH.
--- NOTE | 2018-11-28 00:27 | NUR ---
BED ALARM PLACED ON PT. PT RESTING WITH EYES CLOSED. RESP EVEN AND REGULAR. SR UP X2, CALL LIGHT WITHIN REACH.
[2018-11-28 00:30] VITALS: BP 161/59
--- NOTE | 2018-11-28 02:03 | NUR ---
PT RESTING WITH EYES CLOSED. RESP EVEN AND REGULAR. SR UP X2, CALL LIGHT WITHIN REACH.
[2018-11-28 04:00] VITALS: BP 161/65
--- NOTE | 2018-11-28 04:25 | NUR ---
PT AWAKE; DENIES ANY DISCOMFORT. AM FSBS 156. 2 UNITS HUMALOG GIVEN SUB-Q TO UPPER R ARM. SR UP X2,CALL LIGHT WITHIN REACH.
[2018-11-28 06:07] LABS: HEMATOCRIT 23.6 % (36.0-48.0); HEMOGLOBIN 7.6 g/dL (12-16); IMMATURE GRANULOCYTES 11.2 % (0-5); MCH 28.3 pg (26.0-34.0); MCHC 32.2 g/dL (31.0-37.0); MCV 87.7 fL (80.0-100.0); MEAN PLATELET VOLUME 8.5 fL (7.4-10.4); PLATELET COUNT 308 10x3/uL (130-400); RBC 2.69 10x6/uL (4.00-5.40); RDW 13.9 % (11.5-14.5)
[2018-11-28 06:19] LABS: CALC OSMOLALITY 273 mosm/kg (275-300); CALCIUM 7.1 mg/dL (8.5-10.1); CARBON DIOXIDE 20.7 mmol/L (21.0-32.0); CHLORIDE - SERUM 107 mmol/L (98-107); CREATININE - SERUM 0.6 mg/dL (0.6-1.3); MAGNESIUM - SERUM 1.8 mg/dL (1.8-2.4); PHOSPHOROUS 1.6 mg/dL (2.5-4.9); POTASSIUM - SERUM 4.3 mmol/L (3.5-5.1); SODIUM 136 mmol/L (136-145); UREA NITROGEN 13 mg/dL (7-18); eGFR NON AFRICAN AMERICAN > 90 mL/min (90-120)
[2018-11-28 06:21] LABS: GLUCOSE 140 mg/dL (74-106)
[2018-11-28 06:33] LABS: LYMPHOCYTES 28 % (15-50); MONOCYTES 8 % (2-11); NEUTROPHILS 59 % (40-80)
--- NOTE | 2018-11-28 06:46 | NUR ---
VSS THROUGHTOUT NIGHT. SR PER CM. PT DENIED ANY DISCOMFORT. NEEDS MET; WILL CONTINUE TO MONTIOR.
--- NOTE | 2018-11-28 07:36 | NUR ---
PT AWAKE AND CONFUSED. GOT MORE ORIENTED THE LONGER WE SPOKE, I THINK PT JUST HAS A HARD TIME WAKING UP IN THE MORNING. LYING ON BACK, NO DIFFICULTY/ACUTE DISTRESS NOTED. ALL QUESTIONS ANSWERED TO THE BEST OF MY ABILITY. NO COMPLAINTS, CONCERNS, COMMETNS STATED AT THIS ITME. CL IN REACH, SRX2.
[2018-11-28 08:43] VITALS: BP 150/64
[2018-11-28 12:13] VITALS: BP 136/58
--- NOTE | 2018-11-28 16:02 | NUR ---
PT RECIEVING BLOOD STARTED @ 1535. NO ADVERSE REACTIONS NOTED AT THIS TIME. AT BEDSIDE. CL IN REACH, SRX.
--- NOTE | 2018-11-28 19:56 | NUR ---
RECEIVED REPORT, WILL ASSUME CARE OF PT, DENIES ANY NEEDS AT THIS TIME, 2ND UNIT OF PRBC IS INFUSING AT THIS TIME, BED IS LOW, SRX2, CALL LIGHT IN REACH, WILL CONTINUE PLAN OF CARE
[2018-11-28 20:00] VITALS: BP 146/55; BP 147/59
[2018-11-29] VITALS: BP 146/55
--- NOTE | 2018-11-29 01:53 | NUR ---
I have reviewed this patient and I concur with the Shift Assessment completed by the Licensed Practical Nurse today this shift.
[2018-11-29 04:00] VITALS: BP 149/50
[2018-11-29 06:18] LABS: LYMPHOCYTES 16.4 % (15-50); MCH 28.9 pg (26.0-34.0); MCHC 33.8 g/dL (31.0-37.0); MEAN PLATELET VOLUME 8.3 fL (7.4-10.4); NEUTROPHILS 71.9 % (40-80); PLATELET COUNT 278 10x3/uL (130-400); RDW 15.4 % (11.5-14.5); WBC 8.5 10x3/uL (4.8-10.8)
[2018-11-29 06:19] LABS: HEMATOCRIT 30.5 % (36.0-48.0); HEMOGLOBIN 10.3 g/dL (12-16); MCV 85.4 fL (80.0-100.0); RBC 3.57 10x6/uL (4.00-5.40)
[2018-11-29 06:36] LABS: CALC OSMOLALITY 276 mosm/kg (275-300); CARBON DIOXIDE 20.2 mmol/L (21.0-32.0); CHLORIDE - SERUM 107 mmol/L (98-107); CREATININE - SERUM 0.6 mg/dL (0.6-1.3); GLUCOSE 168 mg/dL (74-106); MAGNESIUM - SERUM 1.8 mg/dL (1.8-2.4); PHOSPHOROUS 1.7 mg/dL (2.5-4.9); SODIUM 137 mmol/L (136-145); UREA NITROGEN 11 mg/dL (7-18); eGFR NON AFRICAN AMERICAN > 90 mL/min (90-120)
--- NOTE | 2018-11-29 07:21 | NUR ---
PT AWAKE AND ORIENTED. STATES SHE DIDN'T SLEEP WELL LAST NIGHT AND IS VERY TIRED TODAY. STATES SHE PLANS ON TAKING MANY CAT NAPS THROUGHOUT TODAY. NO OTHER COMPLAINTS/CONCERNS/COMMENTS, ALL QUESTIONS ANSWERED TO THE BEST OF MY ABILITY. CL IN REACH, SRX2.
[2018-11-29 09:06] VITALS: BP 160/59
--- NOTE | 2018-11-29 10:19 | NUR ---
PT WAS INCONT OF STOOL, CLEANED PT UP WELL, CHANGED LINNENS. PT WALKED WITH PT AND IS CURRENTLY UP IN HER BEDSIDE RECLINER. CL IN REACH. NO FAMILY PRESENT AT THIS TIME.
[2018-11-29 11:43] VITALS: BP 133/65
--- NOTE | 2018-11-29 13:13 | NUR ---
PLACED PT BACK IN BED, X1 ASSIST.B
[2018-11-29 14:18] VITALS: Ht 167.6 cm; Wt 56.7 kg
--- NOTE | 2018-11-29 14:42 | NUR ---
I have reviewed this patient and I concur with the Shift Assessment completed by the Licensed Practical Nurse today this shift.
--- NOTE | 2018-11-29 15:26 | NUR ---
PT AWAKE AND ORIENTED, LYING IN BED VISITING WITH . PT STATES SHE'S GLAD SHE'S GETTING IV IRON AGAIN TONIGHT BECAUSE SHE FEELS LIKE IT HELPED HER SLEEP LAST NIGHT. NO COMPLAINTS/CONCERNS. CL IN REACH, SRX2.
--- NOTE | 2018-11-29 19:41 | NUR ---
RECEIVED REPORT, WILL ASSUME CARE OF PT, PT DENIES ANY NEEDS AT THIS TIME, BED IS LOW, SRX2, CALL LIGHT IN REACH, WILL CONTINUE PLAN OF CARE
[2018-11-29 20:00] VITALS: BP 143/50
--- NOTE | 2018-11-29 20:30 | NUR ---
PM MEDS GIVEN, [id number] 2UNITS OF HUMALOG, PROVIDED ICE WATER
[2018-11-30 00:14] VITALS: BP 153/64
--- NOTE | 2018-11-30 02:57 | NUR ---
I have reviewed this patient and I concur with the Shift Assessment completed by the Licensed Practical Nurse today this shift.
[2018-11-30 04:15] VITALS: BP 144/60
[2018-11-30 05:34] LABS: BASOPHILS 0.2 % (0-2); EOSINOPHILS 1.1 % (0-7); HEMATOCRIT 31.1 % (36.0-48.0); HEMOGLOBIN 10.2 g/dL (12-16); LYMPHOCYTES 15.4 % (15-50); MCH 27.3 pg (26.0-34.0); MCHC 32.8 g/dL (31.0-37.0); MEAN PLATELET VOLUME 8.5 fL (7.4-10.4); MONOCYTES 11.2 % (2-11); NEUTROPHILS 66.1 % (40-80); RBC 3.73 10x6/uL (4.00-5.40); RDW 15.7 % (11.5-14.5); WBC 9.7 10x3/uL (4.8-10.8)
[2018-11-30 05:53] LABS: MCV 83.4 fL (80.0-100.0); PLATELET COUNT 351 10x3/uL (130-400)
[2018-11-30 05:57] LABS: ALBUMIN 1.9 g/dL (3.4-5.0); ALKALINE PHOSPHATASE 71 U/L (46-116); ALT (SGPT) 11 U/L (10-68); BILIRUBIN - TOTAL 0.26 mg/dL (0.2-1.3); CALC OSMOLALITY 278 mosm/kg (275-300); CALCIUM 7.2 mg/dL (8.5-10.1); CARBON DIOXIDE 22.2 mmol/L (21.0-32.0); CHLORIDE - SERUM 109 mmol/L (98-107); CREATININE - SERUM 0.6 mg/dL (0.6-1.3); GLUCOSE 114 mg/dL (74-106); POTASSIUM - SERUM 4.1 mmol/L (3.5-5.1); PROTEIN - SERUM 4.6 g/dL (6.4-8.2); SODIUM 140 mmol/L (136-145); UREA NITROGEN 10 mg/dL (7-18); eGFR NON AFRICAN AMERICAN > 90 mL/min (90-120)
--- NOTE | 2018-11-30 07:30 | NUR ---
PT AWAKE AND ORIENTED, LYIGN IN BED, NO FAMILY PRESENT AT THIS TIME. STATES SHE FEELS "PRETTY GOOD" TODAY. NO COMPLAINTS OR CONCERNS VOICED, ALL QUESTIONS ANSWERED TO THE BEST OF MY ABILITY. CL IN REACH, SRX2.
[2018-11-30 07:33] VITALS: BP 166/70
[2018-11-30 11:16] VITALS: BP 152/76
[2018-11-30 16:07] VITALS: BP 146/72
--- NOTE | 2018-11-30 17:09 | NUR ---
OT NOTE: PT COMPLETED SUPINE TO SIT WITH MIN/CGA A. PT COMPLETED SIT TO STAND WITH CGA. PT COMPLETED FACE WASH WITH SET UP. PT COMPLETED HAIR GROOMING WITH SET UP AT EOB. PT PROGRESSING WELL WITH OT . THANK YOU, ANGELO BRADFORD
--- NOTE | 2018-11-30 19:44 | NUR ---
PATIENT AAO RESTING COMFORTABLY IN BED. RESPIRATIONS ARE EVEN AND UNLABORED. NO S/S OF DISTRESS. NO C/O PAIN. CALL LIGHT WITHIN REACH. WILL CPOC.
[2018-11-30 20:00] VITALS: BP 169/62
[2018-12-01 00:02] VITALS: BP 171/69
[2018-12-01 04:08] VITALS: BP 142/57
[2018-12-01 07:10] LABS: HEMATOCRIT 30.8 % (36.0-48.0); HEMOGLOBIN 10.2 g/dL (12-16); MCHC 33.1 g/dL (31.0-37.0); MCV 84.6 fL (80.0-100.0); MEAN PLATELET VOLUME 8.5 fL (7.4-10.4); PLATELET COUNT 388 10x3/uL (130-400); RBC 3.64 10x6/uL (4.00-5.40); RDW 15.7 % (11.5-14.5); WBC 8.4 10x3/uL (4.8-10.8)
[2018-12-01 07:36] LABS: ALBUMIN 1.9 g/dL (3.4-5.0); ALKALINE PHOSPHATASE 74 U/L (46-116); ALT (SGPT) 12 U/L (10-68); BILIRUBIN - TOTAL 0.27 mg/dL (0.2-1.3); CALC OSMOLALITY 283 mosm/kg (275-300); CALCIUM 7.2 mg/dL (8.5-10.1); CARBON DIOXIDE 21.6 mmol/L (21.0-32.0); CHLORIDE - SERUM 110 mmol/L (98-107); CREATININE - SERUM 0.5 mg/dL (0.6-1.3); GLUCOSE 133 mg/dL (74-106); POTASSIUM - SERUM 3.9 mmol/L (3.5-5.1); PROTEIN - SERUM 4.6 g/dL (6.4-8.2); SODIUM 142 mmol/L (136-145); UREA NITROGEN 11 mg/dL (7-18); eGFR NON AFRICAN AMERICAN > 90 mL/min (90-120)
[2018-12-01 07:55] VITALS: BP 166/64
--- NOTE | 2018-12-01 08:45 | NUR ---
AMBULATES HALLWAY WITH PT ASSIST. WILL CONT. PLAN OF CARE.
--- NOTE | 2018-12-01 09:41 | NUR ---
STOOL SPECIMEN COLLECTED AND TAKEN TO LAB. WILL MONITOR.
[2018-12-01 10:46] LABS: LYMPHOCYTES 14 % (15-50); MONOCYTES 15 % (2-11); NEUTROPHILS 62 % (40-80); PLATELET ESTIMATE NORMAL
[2018-12-01 12:25] VITALS: BP 136/60
[2018-12-01 14:09] LABS: SPE - ALBUMIN 2.3 g/dL (2.9-4.4); SPE - ALPHA-1 GLOBULIN 0.3 g/dL (0.0-0.4); SPE - ALPHA-2 GLOBULIN 0.8 g/dL (0.4-1.0); SPE - BETA GLOBULIN 0.7 g/dL (0.7-1.3); SPE - GAMMA GLOBULIN 0.5 g/dL (0.4-1.8); SPE - M-SPIKE Not Observed g/dL (Not Observed); SPE - TOTAL PROTEIN 4.6 g/dL (6.0-8.5)
[2018-12-01 14:46] VITALS: BP 142/68
--- NOTE | 2018-12-01 15:59 | NUR ---
OT NOTE: UPON ENTERING PTS WAS CONCERNED DOCTORS WAS GOING TO DC PATIENT HOME W/O THERAPY. NURSING NOTIFIED. NURSE REASSURED THAT GOAL WAS REHAB FOR PATIENT AT [place]. PT COMPLETED BED MOB WITH CGA. PT COMPLETED ADL MOB WITH CGA. PT COMPLETED DOFF SHOES WITH SPV. PT COMPLETED HAIR GROOMING AT EOB WITH SET UP. PT IS EXHIBITING INCREASED ACTIVITY TOLERANCE AND REQUIRED LESS ASSISTANCE. THANK YOU, ANGELO BRADFORD
--- NOTE | 2018-12-01 16:03 | NUR ---
Rehab Note- Have been on the phone with [facility] & [employer] & unable to find pending Auth initiated on 11/27, Ref #[id number]. Spoke with Tatianna & had to initiate [facility]oter inpatient acute rehab [facility], Ref#[id number]. Clinicals faxed at this time. Will continue to follow at this time. Arabella Diego RN Clinical Liaison, [facility] Rehab
[2018-12-01 20:00] VITALS: BP 160/58
[2018-12-02] VITALS: BP 165/68
[2018-12-02 04:00] VITALS: BP 163/64
[2018-12-02 05:37] LABS: BASOPHILS 0.3 % (0-2); HEMATOCRIT 30.3 % (36.0-48.0); HEMOGLOBIN 10.2 g/dL (12-16); IMMATURE GRANULOCYTES 2.3 % (0-5); LYMPHOCYTES 16.6 % (15-50); MCH 28.7 pg (26.0-34.0); MCHC 33.7 g/dL (31.0-37.0); MCV 85.1 fL (80.0-100.0); MEAN PLATELET VOLUME 8.2 fL (7.4-10.4); MONOCYTES 11.2 % (2-11); NEUTROPHILS 68.6 % (40-80); PLATELET COUNT 375 10x3/uL (130-400); RBC 3.56 10x6/uL (4.00-5.40); RDW 15.7 % (11.5-14.5)
[2018-12-02 06:12] LABS: ALBUMIN 1.8 g/dL (3.4-5.0); ALKALINE PHOSPHATASE 82 U/L (46-116); ALT (SGPT) 12 U/L (10-68); BILIRUBIN - TOTAL 0.22 mg/dL (0.2-1.3); CARBON DIOXIDE 24.6 mmol/L (21.0-32.0); CHLORIDE - SERUM 108 mmol/L (98-107); POTASSIUM - SERUM 3.5 mmol/L (3.5-5.1); PROTEIN - SERUM 4.9 g/dL (6.4-8.2); SODIUM 140 mmol/L (136-145); UREA NITROGEN 10 mg/dL (7-18)
[2018-12-02 06:36] LABS: CALC OSMOLALITY 283 mosm/kg (275-300); CALCIUM 6.8 mg/dL (8.5-10.1); CREATININE - SERUM 0.7 mg/dL (0.6-1.3); GLUCOSE 199 mg/dL (74-106); eGFR NON AFRICAN AMERICAN 84 mL/min (90-120)
[2018-12-02 07:58] VITALS: BP 119/68
--- NOTE | 2018-12-02 08:02 | NUR ---
PT RESTING, EYES CLOSED. RR EVEN AND UNLABORED. NO DISTRESS NOTED. WILL CONTINUE TO MONITOR.
--- NOTE | 2018-12-02 12:33 | NUR ---
I have reviewed this patient and I concur with the Shift Assessment completed by the Licensed Practical Nurse today this shift.
[2018-12-02 12:45] VITALS: BP 129/66
--- NOTE | 2018-12-02 14:26 | NUR ---
Nutrition Follow-up: Pt reports overall good appetite/PO intake. Diet: Diabetic PO intake: 69% avg x 4 meals No new wt Last BM: 11/30 per pt Labs reviewed Meds reviewed Rec continue current diet as tolerated. [place]ena food preferences within diet restrictions. RD following.
[2018-12-02] MEDS ORDERED: PROPAFENONE HC150 MG PO (14:35)
--- NOTE | 2018-12-02 14:40 | NUR ---
OT NOTE: PT IS PROGRESSING WELL. PT COMPLETED SUPINE TO SIT WITH CGA. PT COMPLETED ADL MOB CGA/SBA. PT COMPLETED HAIR GROOMING AT EOB. PTS ACTIVITY TOLERANCE IS IMPROVING. THANK YOU, ANGELO BRADFORD
--- NOTE | 2018-12-02 14:56 | NUR ---
Rehab Note- Received fax from [facility] with a denial for an inpatient acutee rehab stay. hand delivered copy of denial letter to JCARLOS Bailey. Thank you for this referral! Arabella Diego RN Clinical Liaison, [facility] Rehab
--- NOTE | 2018-12-02 15:34 | MORECARE ---
CASE MANAGEMENT DISCHARGE SUMMARY PATIENT: JAYCE JIM UNIT: [id number] ADM DATE: 11/24/18 AGE: 88 : 31 SEX: F ROOM/BED: D.8919 AUTHOR: KATIE MARTIN PHYSICIAN: REFERRING PHYSICIAN: WAYLON FULLER MD DATE OF SERVICE: 12/02/18 Discharge Plan Patient Name: [facility]AYCE JIM [facility] [facility] 1930 Planned Disposition: Home with Home Health Anticipated Discharge Date: 12/02/18 Discharge Date: Expected LOS: 8 Initial Reviewer: [id number] Initial Review Date: 11/24/2018 Generated: 12/02/18 4:34 pm DCP- Discharge Planning Updated by [id number]: Aniceto Zuleta on 11/27/18 11:[address] Patient Name: JAYCE JIM Encounter No: [id number] : 1930 Primary Insurance: [employer] MEDICARE ADV Anticipated DC Date: Planned Disposition: Inpatient Rehab External Planned Provider: [facility] INPATIENT REHAB DCP follow-up note: CM RECEIVED INPATIENT REHAB PRESCREENING ORDER, MET WITH PT AND SPOUSE IN ROOM TO DISCUSS DISCHARGE PLANNING AND NEEDS. CM DISCUSSED AVAILABILTY OF REHAB SERVICES, PROVIDERS, LOCATIONS AND INSURANCE REQUIRING PRIOR AUTHORIZATION FOR SERVICES. PT'S SPOUSE REPORTS PT HAS BEEN TO [facility] IN THE PAST AND THEY WOULD LIKE TO TRY REHAB AT [place]. PT IN AGREEMENT. IMPORTANT MESSAGE FROM MEDICARE PROVIDED AND EXPLAINED. CM WAITING INPATIENT REHAB PRESCREENING, ADMISSION DETERMINATION FROM [facility] INPATIENT REHAB WELL INSURANCE AUTHORIZATION FOR REHAB SERVICES. FLORENTINO Pierre DCP- Discharge Planning Updated by [id number]: Aniceto Zuleta on 11/26/18 3:[address] Patient Name: JAYCE JIM Admission Status: ER Accout number: [id number] Admission Date: 11-24-2018 : 1930 Admission Diagnosis: Attending: WAYLON FULLER Current LOS: 2 Anticipated DC Date: Planned Disposition: Home Primary Insurance: [employer] MED[employer]ARE ADV Discharge Planning Comments: CM MET WITH PT AND SPOUSE IN ROOM TO DISCUSS DISCHARGE PLANNING AND NEEDS. JAYCE JIM provided verbal consent to discuss current and ongoing needs with/in the presence of: SPOUSE, ALFRED. PT REPORTS LIVING AT HOME DEPENDENTLY WITH HER SPOUSE WHO ASSIST WITH MEDICATION MANAGEMENT. PT HAS ROLLATOR WALKER, WALKER AND WHEELCHAIR AT HOME WITH NO MEDICAL EQUIPMENT PROVIDER PREFERENCE. PT HAS NO OUTSIDE SERVICES ASSISTING IN THE HOME. PT HAS BEEN GOING TO [facility] ON TUESDAYS AND THURSDAYS FOR THERAPY. CM DISCUSSED AVAILABILITY OF HOME HEALTH, REHAB SERVICES AND MEDICAL EQUIPMENT. PT DENIES DISCHARGE NEEDS REPORTS PLAN TO GO HOME. PT'S SPOUSE REPORTS PT'S LEGS ARE WEAK AND PT MAY REQUIRE REHAB OR THERAPY SERVICES. THEY WILL LET CM KNOW IF THEY FEEL REHAB IS NEEDED PRIOR TO DISCHARGE. PT'S SPOUSE TO TRANSPORT HOME AT DISCHARGE. PT PLANS TO DISCHARGE HOME WITH SPOUSE. PT HAS UNKNOWN DISCHARGE NEEDS AT THIS TIME, SPOUSE THINKS PT MAY REQUIRE REHAB OF SOME TYPE EITHER BEFORE GOING HOME OR AT HOME WITH HOME HEALTH. CM TO FOLLOW AND ASSIST NEEDED. Neuropsychiatric Aide: Aniceto Zuleta DCPIA - Discharge Planning Initial Assessment Updated by [id number]: Aniceto Zuleta on 11/26/18 4:36 pm * Is the patient Alert and Oriented? Yes * How many steps to enter\exit or inside your home? NONE * PCP DR. ACEVEDO * [facility] * Preadmission Environment Home with Family * ADLs Independent * Equipment Rolling Walker Walker Wheelchair * Other Equipment ROLLATOR WALKER NO MEDICAL EQUIPMENT PROVIDER PREFERENCE * List name and contact numbers for known caregivers / representatives who currently or will assist patient after discharge: ALFRED JIM, SPOUSE, OR [facility]- [phone] DANTE SOTELO, DTR, * Verbal permission to speak to the caregivers and representatives has been obtained from the patient. N/A * Community resources currently utilized Other * Please name any agencies selected above. OUTPATIENT PHYSICAL THERAPY, FRIDAY/FRIDAY, [facility] * Additional services required to return to the preadmission environment? No * Can the patient safely return to the preadmission environment? Yes * Has this patient been hospitalized within the prior 30 days at any hospital? No External Providers External Provider: [facility] Next Contact Date: 12/02/2018 Service Request Date: Service Type: Resolution: Reviewer: Comments: Coverage Notice Reviewer: [id number] - Aniceto Zuleta Notice Issued Date-Time: 11/27/2018 11:50 Notice Type: IM Discharge Notice Notice Delivered To: Family Member Relationship to Patient: Spouse Supervising Editor Trailer Name: SAMAN JIM Delivery Method: HAND - Hand Delivered Adrienne Days: Prior Verbal Notification: Recipient Understood Notice: Yes Recipient Signature: Yes Med Rec Note Co-signed by Attending: Coverage Notice Comment: Last DP export: 11/27/18 11:11 am Patient Name: JAYCE JIM Page [id number] at 1534 All edits/amendments must be made on the electronic document DICTATION DATE: 12/02/18 1533 LUMP MACHINE OPERATOR: ADONIS 12/02/18 1533 RPT#: [id number] DC DATE: STATUS: ADM IN [facility] [address] [place] [address] END OF REPORT
--- NOTE | 2018-12-02 15:42 | MORECARE ---
CASE MANAGEMENT DISCHARGE SUMMARY PATIENT: JAYCE JIM UNIT: [id number] ADM DATE: 11/24/18 AGE: 88 : 31 SEX: F ROOM/BED: D.6230 AUTHOR: VERONICADOC PHYSICIAN: REFERRING PHYSICIAN: WAYLON FULLER MD DATE OF SERVICE: 12/02/18 Discharge Plan Patient Name: JAYCE JIM Facility: [facility]:[place] : 1930 Planned Disposition: Home with Home Health Anticipated Discharge Date: 12/02/18 Discharge Date: Expected LOS: 8 Initial Reviewer: [email or web address] Initial Review Date: 11/24/2018 Generated: 12/02/18 4:41 pm Comments DCP- Discharge Planning Updated by [email or web address]: Aniceto Zuleta on 12/02/18 2:[address] Patient Name: JAYCE JIM Encounter No: [id number] : 1930 Primary Insurance: [employer] MEDICARE ADV Anticipated DC Date: 12-02-2018 Planned Disposition: Home with Home Health External Planned Provider: [facility] DCP follow-up note: CM RECEIVE DENIAL FOR INPATIENT REHAB FROM PT'S INSURANCE COMPANY, SPOKE TO JENNIFER VELAZQUEZ WHO INFORMED CM THAT PT CAN DISCHARGE TODAY WITH HOME HEALTH. ORDER RECEIVED. CM MET WITH PT AND SPOUSE IN ROOM TO DISCUSS DISCHARGE NEEDS AND PLANNING. PT WANTS HOME HEALTH WITH NO PROVIDER PREFERENCE. PROVIDER LISTING GIVEN, CHOICE SIGNED FOR NO PREFERENCE. PT AND SPOUSE BOTH DENY FURTHER NEEDS, PT REPORTS AGREEMENT WITH PLAN TO DISCHARGE HOME TODAY. IMPORTANT MESSAGE FROM MEDICARE PROVIDED AND EXPLAINED. PT'S DISCHARGE ADDRESS IS [address] [place] [address]. CM CALLED [facility], , SPOKE TO ERICA AND PROVIDED REFERRAL INFORMATION, FAXED REFERRAL TO [facility] AT [phone]. RESIDENT PROGRAMS ASSISTANT NURSE AND PT NOTIFIED. FLORENTINO Pierre DCP- Discharge Planning Updated by [id number]: Aniceto Zuleta on 11/27/18 11:[address] Patient Name: JAYCE JIM Encounter No: [id number] : 1930 Primary Insurance: [employer] MEDICARE ADV Anticipated DC Date: Planned Disposition: Inpatient Rehab External Planned Provider: [facility] INPATIENT REHAB DCP follow-up note: CM RECEIVED INPATIENT REHAB PRESCREENING ORDER, MET WITH PT AND SPOUSE IN ROOM TO DISCUSS DISCHARGE PLANNING AND NEEDS. CM DISCUSSED AVAILABILTY OF REHAB SERVICES, PROVIDERS, LOCATIONS AND INSURANCE REQUIRING PRIOR AUTHORIZATION FOR SERVICES. PT'S SPOUSE REPORTS PT HAS BEEN TO [facility] IN THE PAST AND THEY WOULD LIKE TO TRY REHAB AT [place]. PT IN AGREEMENT. IMPORTANT MESSAGE FROM MEDICARE PROVIDED AND EXPLAINED. CM WAITING INPATIENT REHAB PRESCREENING, ADMISSION DETERMINATION FROM [facility] INPATIENT REHAB WELL INSURANCE AUTHORIZATION FOR REHAB SERVICES. Aniceto Zuleta, CASE MANAGEMENT DCP- Discharge Planning Updated by [id number]: Aniceto Zuleta on 11/26/18 3:[address] Patient Name: JAYCE JIM Admission Status: ER Accout number: [id number] Admission Date: 11-24-2018 : 1930 Admission Diagnosis: Attending: WAYLON FULLER Current LOS: 2 Anticipated DC Date: Planned Disposition: Home Primary Insurance: [employer]ARE ADV Discharge Planning Comments: CM MET WITH PT AND SPOUSE IN ROOM TO DISCUSS DISCHARGE PLANNING AND NEEDS. JAYCE JIM provided verbal consent to discuss current and ongoing needs with/in the presence of: SPOUSE, ALFRED. PT REPORTS LIVING AT HOME DEPENDENTLY WITH HER SPOUSE WHO ASSIST WITH MEDICATION MANAGEMENT. PT HAS ROLLATOR WALKER, WALKER AND WHEELCHAIR AT HOME WITH NO MEDICAL EQUIPMENT PROVIDER PREFERENCE. PT HAS NO OUTSIDE SERVICES ASSISTING IN THE HOME. PT HAS BEEN GOING TO [facility] ON TUESDAYS AND THURSDAYS FOR THERAPY. CM DISCUSSED AVAILABILITY OF HOME HEALTH, REHAB SERVICES AND MEDICAL EQUIPMENT. PT DENIES DISCHARGE NEEDS REPORTS PLAN TO GO HOME. PT'S SPOUSE REPORTS PT'S LEGS ARE WEAK AND PT MAY REQUIRE REHAB OR THERAPY SERVICES. THEY WILL LET CM KNOW IF THEY FEEL REHAB IS NEEDED PRIOR TO DISCHARGE. PT'S SPOUSE TO TRANSPORT HOME AT DISCHARGE. PT PLANS TO DISCHARGE HOME WITH SPOUSE. PT HAS UNKNOWN DISCHARGE NEEDS AT THIS TIME, SPOUSE THINKS PT MAY REQUIRE REHAB OF SOME TYPE EITHER BEFORE GOING HOME OR AT HOME WITH HOME HEALTH. CM TO FOLLOW AND ASSIST NEEDED. Associate Account Manager: Aniceto Zuleta DCPIA - Discharge Planning Initial Assessment Updated by [id number]: Aniceto Zuleta on 11/26/18 4:36 pm * Is the patient Alert and Oriented? Yes * How many steps to enter\exit or inside your home? NONE * PCP DR. ACEVEDO * Pharm[facility] * Preadmission Environment Home with Family * ADLs Independent * Equipment Rolling Walker Walker Wheelchair * Other Equipment ROLLATOR WALKER NO MEDICAL EQUIPMENT PROVIDER PREFERENCE * List name and contact numbers for known caregivers / representatives who currently or will assist patient after discharge: ALFRED JIM, SPOUSE, OR [facility]- [phone] DANTE SOTELO, DTR, * Verbal permission to speak to the caregivers and representatives has been obtained from the patient. N/A * Community resources currently utilized Other * Please name any agencies selected above. OUTPATIENT PHYSICAL THERAPY, FRIDAY/FRIDAY, [facility] * Additional services required to return to the preadmission environment? No * Can the patient safely return to the preadmission environment? Yes * Has this patient been hospitalized within the prior 30 days at any hospital? No Coverage Notice Reviewer: RONI Zuleta Notice Issued Date-Time: 11/27/2018 11:50 Notice Type: IM Discharge Notice Notice Delivered To: Family Member Relationship to Patient: Spouse Fermentation Operator Name: SAMAN JIM Delivery Method: HAND - Hand Delivered Adrienne Days: Prior Verbal Notification: Recipient Understood Notice: Yes Recipient Signature: Yes Med Rec Note Co-signed by Attending: Coverage Notice Comment: Reviewer: RONI Zuleta Notice Issued Date-Time: 12/02/2018 15:00 Notice Type: Patient Choice Letter Notice Delivered To: Patient Relationship to Patient: Fermentation Operator Name: Delivery Method: HAND - Hand Delivered Adrienne Days: Prior Verbal Notification: Recipient Understood Notice: Yes Recipient Signature: Yes Med Rec Note Co-signed by Attending: Coverage Notice Comment: NO [facility] PREFERENCE Reviewer: [id number] Zuleta Notice Issued Date-Time: 12/02/2018 15:00 Notice Type: IM Discharge Notice Notice Delivered To: Patient Relationship to Patient: Fermentation Operator Name: Delivery Method: HAND - Hand Delivered Adrienne Days: Prior Verbal Notification: Recipient Understood Notice: Yes Recipient Signature: Yes Med Rec Note Co-signed by Attending: Coverage Notice Comment: Last DP export: 12/02/18 2:34 p Patient Name: JAYCE JIM Page [id number] at 1542 All edits/amendments must be made on the electronic document DICTATION DATE: 12/02/18 154 COMMUNITY ENGAGEMENT REPRESENTATIVE: ADONIS 12/02/18 1541 RPT#: [id number] DC DATE: STATUS: ADM IN [facility] [address] [place] [address] END OF REPORT
--- NOTE | 2018-12-02 15:52 | NUR ---
LAURA D/C WITH BULB DEFLATED. PT TOLERATED WELL. 600 ML CLEAR YELLOW URINE. BOTH IVS D/C WITH CATHETER TIP INTACT. D/C INSTRUCTIONS GIVEN. ALL BELONGINGS SENT WITH PT. HEART MONITOR RETURNED TO CLINICAL TRIALS ASSISTANT. PT LEFT VIA WHEELCHAIR TO PERSONAL VEHICHLE. DENIES FURTHER QUESTIONS. VERBALIZES UNDERSTANDING.
== END 2018-12-02 16:01 | disposition home health service (06) | DRG 640 ==
LOC: D.ER 11:03 → D.MS 13:50 → D.ER 13:50 → D.M2 14:53
PROVIDERS: Emergency Medicine; Family Medicine; Internal Medicine Hematology & Oncology; ADMIT Emergency Medicine; ATTEND Emergency Medicine
DX: E86.0 Dehydration (principal); E43 Unspecified severe protein-calorie malnutrition; N17.9 Acute kidney failure, unspecified; E87.1 Hypo-osmolality and hyponatremia; R53.1 Weakness; D64.9 Anemia, unspecified; F03.90 Unspecified dementia, unspecified severity, without behavioral disturbance, psychotic disturbance, mood disturbance, and anxiety; E11.9 Type 2 diabetes mellitus without complications; E87.5 Hyperkalemia; I10 Essential (primary) hypertension; R19.7 Diarrhea, unspecified; I48.91 Unspecified atrial fibrillation; Z68.20 Body mass index [BMI] 20.0-20.9, adult